=== PATIENT | female | born 1990 | race Two or more races ===

== ENCOUNTER 2024-11-14 06:14 | Emergency (ER) | payer MEDICAID, SELFPAY ==
[2024-11-14 06:15] VITALS: BMI 25.6
[2024-11-14 06:21] VITALS: BP 126/81; PULSE 93; RESP 18; TEMP 37.5; O2SAT 97
--- NOTE | 2024-11-14 06:26 | PD.EDURI ---
Upper Respiratory Inf. RME/HPI General Chief Complaint: Flu Like Symptoms Stated Complaint: FLU LIKE SYMPTOMS Time Seen by Provider: 11/14/24 06:19 Arrival date/time: 11/14/24 06:14 34-year-old female presents emergency department complains of cough, congestion, body aches and fever patient for symptoms ongoing for last few days there are no other associated symptoms or aggravating factors no other modifying factors, patient denies taking medication before coming to ER today Limitations: no limitations Related Data Previous Rx's ?Medication ?Instructions ?Recorded ferrous sulfate 325 mg (65 mg 325 mg PO BID #120 tabs 06/18/19 iron) tablet albuterol sulfate 90 mcg/actuation 2 puff inhalation QID #18 grams 10/06/20 aerosol inhaler azithromycin 250 mg tablet See Rx Instructions PO .COMPLEX #6 10/06/20 tabs cetirizine 5 mg-pseudoephedrine ER 1 tab PO BID PRN nasal congestion 10/06/20 120 mg tablet,extended #30 tabs release,12hr (Zyrtec-D) ibuprofen 600 mg tablet 600 mg PO QID #30 tabs 10/06/20 ferrous sulfate 325 mg (65 mg 325 mg PO BID #60 tabs 10/07/20 iron) tablet albuterol sulfate 90 mcg/actuation 2 puff inhalation QID #18 grams 01/19/21 aerosol inhaler azithromycin 250 mg tablet See Rx Instructions PO .COMPLEX #6 01/19/21 tabs cetirizine 10 mg tablet (Zyrtec) 10 mg PO QDAY #30 tabs 01/19/21 naproxen 500 mg tablet (Naprosyn) 500 mg PO BID PRN pain #30 tabs 01/19/21 sodium chloride 0.65 % nasal spray 2 spray intranasal QID PRN nasal 01/19/21 aerosol (Saline Nasal) congestion #60 mL ibuprofen 600 mg tablet 600 mg PO TID PRN pain #30 tabs 05/07/22 hydrocodone 5 mg-acetaminophen 325 1 tab PO Q4H PRN pain #20 tabs 05/26/22 mg tablet ciprofloxacin HCl 500 mg tablet 500 mg PO BID #14 tabs 06/05/22 (Cipro) albuterol sulfate 90 mcg/actuation 2 inh inhalation QID #8.5 grams 11/27/22 aerosol inhaler cetirizine 10 mg tablet (Zyrtec) 10 mg PO QDAY PRN allergy symptoms 11/27/22 #30 tabs ciprofloxacin HCl 500 mg tablet 500 mg PO BID #14 tabs 09/23/23 (Cipro) famotidine 20 mg tablet 20 mg PO QDAY #30 tabs 09/23/23 fluconazole 200 mg tablet 200 mg PO QDAY #5 tabs 09/23/23 (Diflucan) ibuprofen 800 mg tablet (IBU) 800 mg PO Q8H #20 tabs 06/04/24 acetaminophen 500 mg capsule 1,000 mg (2 x 500 mg) PO Q8HR PRN 11/14/24 pain #60 caps albuterol sulfate 90 mcg/actuation 2 puff inhalation Q6H PRN 11/14/24 aerosol inhaler (Ventolin HFA) shortness of breath or wheezing #8.5 grams benzonatate 100 mg capsule 100 mg PO TID #14 caps 11/14/24 Allergies Allergy/AdvReac Type Severity Reaction Status Date / Time No Known Allergies Allergy Verified 11/14/24 06:18 Review of Systems Review of Systems Systems Reviewed: All systems reviewed, normal except as documented Constitutional Constitutional: Reports system reviewed and no additional complaints, except as documented, Reports body ache(s), Reports chills, Reports fever(s) and Denies headache(s) Eyes Eyes: Reports system reviewed and no additional complaints, except as documented and Denies blurry vision ENT Ears, Nose, Mouth, and Throat: Reports system reviewed and no additional complaints, except as documented, Denies headache(s), Reports nasal congestion and Reports nasal discharge Cardiovascular Cardiovascular: Reports system reviewed and no additional complaints, except as documented, Denies chest pain and Denies dyspnea Respiratory Respiratory: Reports system reviewed and no additional complaints, except as documented, Reports chest congestion, Reports cough and Denies dyspnea Gastrointestinal Gastrointestinal: Reports system reviewed and no additional complaints, except as documented and Denies abdominal pain Integumentary/Breasts Skin/Breast: Reports system reviewed and no additional complaints, except as documented and Denies rash Neurologic Neurologic: Reports system reviewed and no additional complaints, except as documented, Reports as per HPI and Denies headache(s) Past Medical History Past Medical History NEUROLOGIC: Negative Neurological Disorders CARDIAC: Negative Cardiac Disorders ED Exam General Limitations: Present no limitations General appearance: Present alert and in no apparent distress Head Head exam: Present atraumatic, normocephalic and normal inspection Eye Eye exam: Present normal appearance, PERRL and EOMI; Absent conjunctival injection ENT ENT exam: Present normal exam, normal oropharynx and mucous membranes moist Neck Neck exam: Present normal inspection, full ROM and trachea midline Chest Chest inspection: Present normal inspection and symmetric chest wall rise Respiratory Respiratory exam: Present normal lung sounds bilaterally; Absent respiratory distress, wheezes, stridor or accessory muscle use Cardiovascular Cardiovascular exam: Present regular rate, normal rhythm and normal heart sounds Abdominal Exam Abdominal exam: Present soft and normal bowel sounds Extremities Exam Extremities exam: Present normal inspection and full ROM Back Exam Back exam: Present normal inspection and full ROM Neurological Exam Neurological exam: Present alert, oriented X3 and CN II-XII intact Psychiatric Psychiatric exam: Present normal affect and normal mood Skin Skin exam: Present warm, dry, intact and normal color Course Quality Measures none Orders Category Date Time Status Bedside COVID-19 Antigen Test NOW Care 11/14/24 06:45 Ordered Bedside Influenza A&B Antigen Test NOW Care 11/14/24 06:27 Active Vital Signs Vital signs: Vital Signs Temperature 99.5 F 11/14/24 06:21 Pulse Rate 93 11/14/24 06:21 Respiratory Rate 18 11/14/24 06:21 Blood Pressure 126/81 11/14/24 06:21 Pulse Oximetry (%) 97 11/14/24 06:21 Oxygen Delivery Method Room Air 11/14/24 06:21 O2 saturation 97% room air within normal limits Upper Respiratory Infection MDM Narrative MDM Narrative:: 34-year-old female presents emergency department complains of cough, congestion, body aches and fever patient for symptoms ongoing for last few days there are no other associated symptoms or aggravating factors no other modifying factors, patient denies taking medication before coming to ER today On exam patient does not appear ill or toxic patient reports no significant medical problems patient reports not Patient symptoms highly consistent with viral illness I suspect patient has flu Patient checked for influenza as well as COVID-19 Patient tested positive for influenza Patient discharged home in no distress to follow-up with primary care doctor in the next 24 to 48 hours and for any worsening symptoms to return to the ER immediately Patient data External records reviewed:: [facility] previous records Clinical information provided by:: patient Social determinants that could affect healthcare access:: none Patient has the following chronic illnesses:: None How is presenting disease/condition affected by chronic disease/condition?: no chronic disease Evaluation data The following diagnostics were reviewed and interpreted by me:: lab results Lab and/or radiology exams considered but not ordered:: Labs obtained Interpretation Summary: Reviewed by me Medications / Prescriptions Medications or Prescriptions considered but not ordered:: Given Medication administrations:: Given Consultations Consultation(s) initiated? (list below): No Diagnosis Upper Respiratory Differential Diagnosis: upper respiratory infection, viral infection, bronchitis and influenza Most likely diagnosis given after review of the tests above:: URI Admission Indicated Admission indicated?: not indicated Admission Request Was there a request for admission?: No Disposition Plan Disposition Plan: Discharge Discharge Attestation Discharge Attestation: The patient and all family members were given an opportunity to ask questions and understood the discharge instructions. Discharge instructions specifically effects, indications for sooner follow up or return to the emergency department, and the expected course of current diagnosis. Patient condition: Stable Discharge Plan Plan Patient Disposition: HOME (Self Care) Disposition Comment: Stable Prescriptions/Referrals Prescriptions/Med Rec: New benzonatate 100 mg capsule 100 mg PO TID Qty: 14 0RF albuterol sulfate [Ventolin HFA] 90 mcg/actuation HFA aerosol inhaler 2 puff inhalation Q6H PRN (Reason: shortness of breath or wheezing) Qty: 8.5 0RF acetaminophen 500 mg capsule 1,000 mg PO Q8HR PRN (Reason: pain) Qty: 60 0RF No Action albuterol sulfate 90 mcg/actuation HFA aerosol inhaler 2 puff inhalation QID Qty: 18 0RF azithromycin 250 mg tablet See Rx Instructions .ROUTE .COMPLEX Qty: 6 0RF Rx Instructions: take 500 mg today (day 1), then 250 mg for 4 days (days 2-5) sodium chloride [Saline Nasal] 0.65 % aerosol,spray 2 spray intranasal QID PRN (Reason: nasal congestion) Qty: 60 0RF cetirizine [Zyrtec] 10 mg tablet 10 mg PO QDAY Qty: 30 0RF naproxen [Naprosyn] 500 mg tablet 500 mg PO BID PRN (Reason: pain) Qty: 30 0RF ibuprofen 600 mg tablet 600 mg PO TID PRN (Reason: pain) Qty: 30 0RF ferrous sulfate 325 mg (65 mg iron) tablet 325 mg PO BID Qty: 120 0RF Rx Instructions: Be sure to take your iron pills on an empty stomach, with orange juice azithromycin 250 mg tablet See Rx Instructions .ROUTE .COMPLEX Qty: 6 0RF Rx Instructions: take 500 mg today (day 1), then 250 mg for 4 days (days 2-5) albuterol sulfate 90 mcg/actuation HFA aerosol inhaler 2 puff inhalation QID Qty: 18 0RF cetirizine-pseudoephedrine [Zyrtec-D] 5-120 mg tablet extended release 12 hr 1 tab PO BID PRN (Reason: nasal congestion ) Qty: 30 0RF ibuprofen 600 mg tablet 600 mg PO QID Qty: 30 0RF ferrous sulfate 325 mg (65 mg iron) tablet 325 mg PO BID Qty: 60 1RF hydrocodone-acetaminophen 5-325 mg tablet 1 tab PO Q4H MDD 5 PRN (Reason: pain) Qty: 20 0RF ciprofloxacin HCl [Cipro] 500 mg tablet 500 mg PO BID Qty: 14 0RF albuterol sulfate 90 mcg/actuation HFA aerosol inhaler 2 inh inhalation QID Qty: 8.5 0RF cetirizine [Zyrtec] 10 mg tablet 10 mg PO QDAY PRN (Reason: allergy symptoms) Qty: 30 0RF ibuprofen [IBU] 800 mg tablet 800 mg PO Q8H Qty: 20 0RF ciprofloxacin HCl [Cipro] 500 mg tablet 500 mg PO BID Qty: 14 0RF fluconazole [Diflucan] 200 mg tablet 200 mg PO QDAY Qty: 5 0RF famotidine 20 mg tablet 20 mg PO QDAY Qty: 30 0RF Referrals: Néstor Dawson MD [Primary Care Provider] - In 1 week Problem List Clinical Impression: Influenza A Patient/Caregiver Discharge Instructions Education Materials: ED Influenza (Adult) Additional Instructions: Please follow up with your primary care doctor in the next 24-48hrs for any worsening symptoms return here immediately Print Language: Greek Stand Alone Forms: Chrystal Award Info., Work/School Release, Patient Portal Info Letter PA/CIRCUIT COURT JUDGE Supervising Physician PA/CIRCUIT COURT JUDGE Supervising Physician: Dr. Graham
[2024-11-14 06:49] VITALS: RESP 18
== END 2024-11-14 06:51 | disposition home or self-care (01) ==
PROVIDERS: Emergency Provider Emergency Medicine; PCP Internal Medicine
DX: J10.1 Influenza due to other identified influenza virus with other respiratory manifestations (principal)
CPT/HCPCS: 87400; 87811; 99282

== ENCOUNTER 2025-01-17 20:12 | Emergency (ER) | payer MEDICAID, SELFPAY ==
[2025-01-17 20:16] VITALS: BMI 27.4
[2025-01-17 20:25] VITALS: BP 121/81; PULSE 72; RESP 20; TEMP 36.9; O2SAT 97
--- NOTE | 2025-01-17 20:32 | EDNOTE_ITS ---
ED Female Urogenital RME/HPI General Chief complaint: Abdominal Pain Stated complaint: states she is beeing treated for UTI not getting b Time Seen by Provider: 01/17/25 20:31 Arrival date/time: 01/17/25 20:12 34F with history of appendectomy presents to ED with several day of pelvic and lower back pain w/o fall/trauma. Patient went to clinic and was given Macrobid for UTI. Patient denies vaginal bleeding, N/V and diarrhea, as well as vaginal discharge. Patient is not concerned about STDs. Limitations: no limitations Related Data Previous Rx's ?Medication ?Instructions ?Recorded ferrous sulfate 325 mg (65 mg 325 mg PO BID #120 tabs 06/18/19 iron) tablet albuterol sulfate 90 mcg/actuation 2 puff inhalation Q ID #18 grams 10/06/20 aerosol inhaler azithromycin 250 mg tablet See Rx Instructions PO .COM PLEX #6 10/06/20 tabs cetirizine 5 mg-pseudoephedrine ER 1 tab PO BID PRN na efren congestion 10/06/20 120 mg tablet,extended #30 tabs release,12hr (Zyrtec-D) ibuprofen 600 mg tablet 600 mg PO QID #30 tabs 10/06 ferrous sulfate 325 mg (65 mg 325 mg PO BID #60 tabs 1 12/08/19 iron) tablet albuterol sulfate 90 mcg/actuation 2 puff inhalation Q ID #18 grams 01/19/21 aerosol inhaler azithromycin 250 mg tablet See Rx Instructions PO .COM PLEX #6 01/19/21 tabs cetirizine 10 mg tablet (Zyrtec) 10 mg PO QDAY #30 tab s 01/19/21 naproxen 500 mg tablet (Naprosyn) 500 mg PO BID PRN pa in #30 tabs 01/19/21 sodium chloride 0.65 % nasal spray 2 spray intranasal QID PRN nasal 01/19/21 aerosol (Saline Nasal) congestion #60 mL ibuprofen 600 mg tablet 600 mg PO TID PRN pain #30 t abs 05/07/22 hydrocodone 5 mg-acetaminophen 325 1 tab PO Q4H PRN pa in #20 tabs 05/26/22 mg tablet ciprofloxacin HCl 500 mg tablet 500 mg PO BID #14 tabs 06/05/22 (Cipro) albuterol sulfate 90 mcg/actuation 2 inh inhalation QI D #8.5 grams 11/27/22 aerosol inhaler cetirizine 10 mg tablet (Zyrtec) 10 mg PO QDAY PRN all ergy symptoms 11/27/22 #30 tabs ciprofloxacin HCl 500 mg tablet 500 mg PO BID #14 tabs 09/23/23 (Cipro) famotidine 20 mg tablet 20 mg PO QDAY #30 tabs 09/23 fluconazole 200 mg tablet 200 mg PO QDAY #5 tabs 09/23 (Diflucan) ibuprofen 800 mg tablet (IBU) 800 mg PO Q8H #20 tabs 0 06/04/24 acetaminophen 500 mg capsule 1,000 mg (2 x 500 mg) PO Q8HR PRN 11/14/24 pain #60 caps albuterol sulfate 90 mcg/actuation 2 puff inhalation Q 6H PRN 11/14/24 aerosol inhaler (Ventolin HFA) shortness of breath or wheezing #8.5 grams benzonatate 100 mg capsule 100 mg PO TID #14 caps 11/05 ondansetron 4 mg disintegrating 4 mg PO Q8H PRN nausea and 01/17/25 tablet vomiting #30 tabs Allergies Allergy/AdvReac Type Severity Reaction Status Date / Time No Known Allergies Allergy Verified 11/14/24 06:18 Review of Systems Review of Systems Systems Reviewed: All systems reviewed, normal except as documented Constitutional Constitutional: Reports system reviewed and no additional complaints, except as documented, Denies fever(s) and Denies headache(s) ENT Ears, Nose, Mouth, and Throat: Denies disequilibrium and Denies headache(s) Cardiovascular Cardiovascular: Reports system reviewed and no additional complaints, except as documented, Denies chest pain and Denies dyspnea Respiratory Respiratory: Reports system reviewed and no additional complaints, except as documented, Denies cough and Denies dyspnea Gastrointestinal Gastrointestinal: Reports system reviewed and no additional complaints, except as documented, Denies abdominal pain, Denies nausea and Denies vomiting Genitourinary Genitourinary: Reports as per HPI, Reports flank pain and Reports pelvic pain Neurologic Neurologic: Reports system reviewed and no additional complaints, except as documented, Denies confusion, Denies disequilibrium and Denies headache(s) Psychiatric Psychiatric: Denies confusion Past Medical History Past Medical History NEUROLOGIC: Negative Neurological Disorders or Seizures CARDIAC: Negative Cardiac Disorders or Congestive Heart Failure RESPIRATORY: Negative Chronic Obstructive Pulmonary Disease (COPD) GASTROINTESTINAL: Negative Gastrointestinal Disorders GENITOURINARY: Negative Genitourinary Disorders or Renal Disease REPRODUCTIVE: Positive Previous Pregnancies MUSCULOSKELETAL: Negative Musculoskeletal Disorders ENDOCRINE: Negative Endocrine Disorders, Diabetes Mellitus Type 1 or Diabetes Mellitus Type 2 HEMATOLOGIC: Positive Blood Disorders and Anemia OTHER HISTORY: Positive Hospitalization, Blood Transfusions and Chicken Pox; Negative Autoimmune Disease, Blood Transfusion Reaction or Anesthesia Reactions Family History FAMILY HISTORY: Positive Family Cardiac Disorders and Family Cancer; Negative Family Psychiatric Problems, Family Respiratory Disorders, Family Gastrointestinal Problems, Family Surgery or Family Anesthesia Reaction Surgical History SURGICAL: Positive Abdominal Surgery and Section Social History SMOKING STATUS: Never smoker SECOND HAND EXPOSURE: No ED Exam General Limitations: Present no limitations General appearance: Present alert and in no apparent distress Head Head exam: Present atraumatic Eye Eye exam: Present normal appearance, PERRL and EOMI ENT ENT exam: Present normal exam, normal oropharynx and mucous membranes moist Neck Neck exam: Present normal inspection, full ROM and trachea midline Chest Chest inspection: Present normal inspection and symmetric chest wall rise Respiratory Respiratory exam: Present normal lung sounds bilaterally Cardiovascular Cardiovascular exam: Present regular rate, normal rhythm and normal heart sounds Abdominal Exam Abdominal exam: Present soft and normal bowel sounds Extremities Exam Extremities exam: Present normal inspection and full ROM Back Exam Back exam: Present normal inspection and full ROM Neurological Exam Neurological exam: Present alert, oriented X3 and CN II-XII intact Psychiatric Psychiatric exam: Present normal affect and normal mood Skin Skin exam: Present warm, dry, intact and normal color Course Quality Measures none Orders Category Date Time Status US pelvic complete Stat Exams 01/17/25 21:06 Completed HCG Qualitative,Urine Stat Lab 01/17/25 20:35 Completed Urinalysis, C/S if Indicated Stat Lab 01/17/25 20:35 Completed Naproxen [Naprosyn] Med 01/17/25 21:06 Discontinued 500 mg PO X1 ONE Ondansetron Odt [Zofran Odt] Med 01/17/25 23:55 Discontinued 4 mg PO X1 ONE Vital Signs Vital signs: Vital Signs Temperature 98.5 F 01/17/25 20:25 Pulse Rate 72 01/17/25 20:25 Respiratory Rate 20 01/17/25 20:25 Blood Pressure 121/81 01/17/25 20:25 Pulse Oximetry (%) 97 01/17/25 20:25 Oxygen Delivery Method Room Air 01/17/25 20:25 O2 at 97% on RA and WNLs Urogenital - Female MDM Narrative MDM Narrative:: 34F with history of appendectomy presents to ED with several day of pelvic and lower back pain w/o fall/trauma. Patient went to clinic and was given Macrobid for UTI. Patient denies vaginal bleeding, N/V and diarrhea, as well as vaginal discharge. Patient is not concerned about STDs. Physical exam reveals no ab/flank/pelvic tenderness. Patient is afebrile, calm, and alert. UA clean but some blood. US reveals ovarian cyst. Meds relieved symptoms. Through shared-decision making, it was decided to hold off on CT to look for kidney stone as patient feels better. She will return if worsening. Patient data External records reviewed:: [facility] previous records Clinical information provided by:: patient Social determinants that could affect healthcare access:: none Patient has the following chronic illnesses:: none How is presenting disease/condition affected by chronic disease/condition?: no chronic disease Evaluation data The following diagnostics were reviewed and interpreted by me:: lab results Lab and/or radiology exams considered but not ordered:: ordered Interpretation Summary: above Medications / Prescriptions Medications or Prescriptions considered but not ordered:: not ordered Medication administrations:: Medication Administration History Discontinued Medications Naproxen (Naproxen 250 Mg Tablet) 500 mg PO X1 ONE Stop: 01/17/25 21:07 Last Admin: 01/17/25 21:19 Dose: 500 mg Documented By: TAMMY Ondansetron HCl (Ondansetron Odt 4 Mg Tabrap) 4 mg PO X1 ONE; Protocol Stop: 01/17/25 23:56 Last Admin: 01/18/25 00:16 Dose: 4 mg Documented By: TAMMY n/a Consultations Consultation(s) initiated? (list below): No Diagnosis Urogenital Female Differential Diagnosis: urinary tract infection, bacterial vaginosis, trichomoniasis, cervicitis, ovarian cyst, vaginitis, ruptured ovarian cyst, cyst of Bartholin's gland, cystitis, dysmenorrhea and other (, ovarian torsion) Most likely diagnosis given after review of the tests above:: ovarian cyst Admission Indicated Admission indicated?: not indicated Admission Request Was there a request for admission?: No Disposition Plan Disposition Plan: Discharge Discharge Attestation Discharge Attestation: The patient and all family members were given an opportunity to ask questions and understood the discharge instructions. Discharge instructions specifically effects, indications for sooner follow up or return to the emergency department, and the expected course of current diagnosis. Patient condition: Stable Discharge Plan Plan Patient Disposition: HOME (Self Care) Disposition Comment: Stable Prescriptions/Referrals Prescriptions/Med Rec: New ondansetron 4 mg tablet,disintegrating 4 mg PO Q8H PRN (Reason: nausea and vomiting) Qty: 30 0RF No Action albuterol sulfate 90 mcg/actuation HFA aerosol inhaler 2 puff inhalation QID Qty: 18 0RF azithromycin 250 mg tablet See Rx Instructions .ROUTE .COMPLEX Qty: 6 0RF Rx Instructions: take 500 mg today (day 1), then 250 mg for 4 days (days 2-5) sodium chloride [Saline Nasal] 0.65 % aerosol,spray 2 spray intranasal QID PRN (Reason: nasal congestion) Qty: 60 0RF cetirizine [Zyrtec] 10 mg tablet 10 mg PO QDAY Qty: 30 0RF naproxen [Naprosyn] 500 mg tablet 500 mg PO BID PRN (Reason: pain) Qty: 30 0RF ibuprofen 600 mg tablet 600 mg PO TID PRN (Reason: pain) Qty: 30 0RF ferrous sulfate 325 mg (65 mg iron) tablet 325 mg PO BID Qty: 120 0RF Rx Instructions: Be sure to take your iron pills on an empty stomach, with orange juice azithromycin 250 mg tablet See Rx Instructions .ROUTE .COMPLEX Qty: 6 0RF Rx Instructions: take 500 mg today (day 1), then 250 mg for 4 days (days 2-5) albuterol sulfate 90 mcg/actuation HFA aerosol inhaler 2 puff inhalation QID Qty: 18 0RF cetirizine-pseudoephedrine [Zyrtec-D] 5-120 mg tablet extended release 12 hr 1 tab PO BID PRN (Reason: nasal congestion ) Qty: 30 0RF ibuprofen 600 mg tablet 600 mg PO QID Qty: 30 0RF ferrous sulfate 325 mg (65 mg iron) tablet 325 mg PO BID Qty: 60 1RF hydrocodone-acetaminophen 5-325 mg tablet 1 tab PO Q4H MDD 5 PRN (Reason: pain) Qty: 20 0RF ciprofloxacin HCl [Cipro] 500 mg tablet 500 mg PO BID Qty: 14 0RF albuterol sulfate 90 mcg/actuation HFA aerosol inhaler 2 inh inhalation QID Qty: 8.5 0RF cetirizine [Zyrtec] 10 mg tablet 10 mg PO QDAY PRN (Reason: allergy symptoms) Qty: 30 0RF ibuprofen [IBU] 800 mg tablet 800 mg PO Q8H Qty: 20 0RF ciprofloxacin HCl [Cipro] 500 mg tablet 500 mg PO BID Qty: 14 0RF fluconazole [Diflucan] 200 mg tablet 200 mg PO QDAY Qty: 5 0RF famotidine 20 mg tablet 20 mg PO QDAY Qty: 30 0RF benzonatate 100 mg capsule 100 mg PO TID Qty: 14 0RF albuterol sulfate [Ventolin HFA] 90 mcg/actuation HFA aerosol inhaler 2 puff inhalation Q6H PRN (Reason: shortness of breath or wheezing) Qty: 8.5 0RF acetaminophen 500 mg capsule 1,000 mg PO Q8HR PRN (Reason: pain) Qty: 60 0RF Referrals: No Primary/Family,Physician [Primary Care Provider] - In 1 week Problem List Clinical Impression: Ovarian cyst Patient/Caregiver Discharge Instructions Education Materials: ED Ovarian Cyst Additional Instructions: Please follow-up with PCP within 24-48 hours and return immediately if symptoms worsen. Print Language: Estonian Stand Alone Forms: Patient Portal Info Letter PA/PROGRAMMING INSTRUCTOR Supervising Physician MARILY/PROGRAMMING INSTRUCTOR Supervising Physician: Dr. Henriquez
[2025-01-17 20:41] LABS: Collection Type, Urine Clean Catch
[2025-01-17 20:47] LABS: Bilirubin,Urine Negative (Negative); Blood,Urine 1+ (Negative); Clarity,Urine Clear (Clear/Hazy); Color,Urine Yellow (Lt Yel-Yel); Culture Indicated,Urine Not Indicated; Glucose, Urine Negative (Negative); Ketones,Urine 3+ (Negative); Leukocyte Esterase,Urine Negative (Negative); Nitrite,Urine Negative (Negative); Protein,Urine Negative (Neg - Trace); RBC,Urine 3 /hpf (0-3); Specific Gravity,Urine 1.029 (1.001-1.035); Squamous Epithelial Cell,Urine 1 /hpf (0-5); Urobilinogen,Urine Negative mg/dL (0.0-1.0); WBC,Urine 1 /hpf (0-5)
[2025-01-17 21:04] LABS: HCG Qualitative,Urine Negative
--- NOTE | 2025-01-17 21:06 | XR_ITS ---
Examination: Pelvic ultrasound, transabdominal, complete Technique: Transabdominal ultrasound of the pelvis performed using grayscale imaging Date and time of exam: January 17, 2025 10:16 PM Indications: Pelvic pain beginning 2 weeks ago Findings: Uterus 8.8 cm endometrial stripe 0.4 cm Minimal fluid in the scar Right ovary 2.5 cm arterial flow Left ovary 4.3 cm arterial flow 18 mm follicular cyst Impression: No uterine mass or intrauterine gestation
[2025-01-17] MEDS: NAPROXEN 250 MG TABLET 500 MG PO (21:19)
[2025-01-18] MEDS: ONDANSETRON ODT 4 MG TABRAP PO (00:16)
== END 2025-01-18 00:19 | disposition home or self-care (01) ==
PROVIDERS: Physician Assistant; Emergency Provider Emergency Medicine
DX: N83.02 Follicular cyst of left ovary (principal)
CPT/HCPCS: 76856; 81001; 81025; 99284; Q0162; A9270